=== PATIENT | male | born 1960 | race Caucasian/White ===

== ENCOUNTER 2018-03-14 07:40 | Outpatient (CLI) | payer BC ==
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
== END 2018-03-14 07:41 | disposition home or self-care (01) ==
LOC: WCC 07:40
PROVIDERS: ATTEND Family Medicine
DX: I83.228 Varicose veins of left lower extremity with both ulcer of other part of lower extremity and inflammation (principal); E11.622 Type 2 diabetes mellitus with other skin ulcer; I10 Essential (primary) hypertension; L97.929 Non-pressure chronic ulcer of unspecified part of left lower leg with unspecified severity; E11.51 Type 2 diabetes mellitus with diabetic peripheral angiopathy without gangrene; I25.10 Atherosclerotic heart disease of native coronary artery without angina pectoris; Z87.19 Personal history of other diseases of the digestive system
CPT/HCPCS: 36416

== ENCOUNTER 2018-03-28 09:50 | Outpatient (CLI) | payer BC ==
--- NOTE | 2018-03-28 08:53 | PRG ---
DATE OF SERVICE: 03/18/2018 HISTORY: Mr. Ismael Stafford is a very pleasant 57-year-old gentleman who presents to the [facility] for evaluation of ulceration over the left anterior lower leg. The patient previously stated at t he time of his initial presentation to the [facility] Center that the ulceration had been present for a li ttle over 3 months. He stated that he believed the wound began after he hit his left anterior lower leg against a concrete block at work. The patient stated that he had treated his wound by cleansing with soap and water. He stated that he had also treated the wound with hydrogen peroxide and Neospor in. He stated that he had treated his wounds with these agents twice a day. He stated that he kept the wound covered at work, but left the wound open to air while at home. The patient stated he was s een by Dr. Herring on 02/23/2018 and at this time referred to the [facility]ound Center for further evaluation and treatment. The patient also stated that he had been placed on Bactrim for [address] Michael felix. After being seen in the Wound Center, the patient was placed on dressing changes of Medihoney, ga uze and Coban. PHYSICAL EXAMINATION: VITAL SIGNS: Temperature 97.9, pulse 69, respirations 18, blood pressure 137/63, Accu-Chek 88. EXTREMITIES: An ulceration of the left anterior lower leg is present which measures approximately 0. 9 x 1.0 cm. No serous or purulent drainage is associated with the wound. No cellulitis of the left lower leg is appreciated. No maceration of the skin of the periwound is noted. A dorsalis pedis pul se and posterior tibial pulse is not palpable on the left. A dorsalis pedis pulse and posterior tibi al pulse on the left are both faintly audible by Doppler. No significant edema of the left lower leg is present on exam today. ASSESSMENT AND PLAN: 1. Varicose veins with ulcer and inflammation and varicosities are present over the left lower leg. The healing of the ulceration also appears to be complicated by arterial insufficiency. The patient previously stated that he may undergo percutaneous revascularization of the left lower extremity by Dr. Chino in the future. Dressing changes of Medihoney, gauze and Coban will be continued on a d aily basis after cleansing and irrigation. I will see Mr. Stafford again in two weeks. 2. Diabetes mellitus. The patient's Accu-Chek in clinic today is 88. The patient has been reminded that for optimal wound healing, his blood glucoses should remain below 150. 3. Hypertension. 4. Peripheral vascular disease. 5. Coronary artery disease. 6. History of hepatitis C.
== END 2018-03-28 09:51 | disposition home or self-care (01) ==
LOC: WCC 09:50
PROVIDERS: ATTEND Family Medicine
DX: I83.228 Varicose veins of left lower extremity with both ulcer of other part of lower extremity and inflammation (principal); E11.622 Type 2 diabetes mellitus with other skin ulcer; L97.929 Non-pressure chronic ulcer of unspecified part of left lower leg with unspecified severity; I73.9 Peripheral vascular disease, unspecified; I25.10 Atherosclerotic heart disease of native coronary artery without angina pectoris; I10 Essential (primary) hypertension; Z86.19 Personal history of other infectious and parasitic diseases
CPT/HCPCS: 36416; 97602

== ENCOUNTER 2018-04-11 07:50 | Outpatient (CLI) | payer BC ==
--- NOTE | 2018-04-11 08:48 | PRG ---
DATE OF SERVICE: 04/11/2018 HISTORY: Mr. Ismael Stafford is a very pleasant 57-year-old gentleman who presents to the [facility] for evaluation of an ulceration over the left anterior lower leg. The patient previously stated at the time of his initial presentation to the Wound Center that the ulceration had been present for a little over 3 months. He stated that he believed the wound began after he hit his left anterior lowe r leg against a concrete block at work. The patient stated that he had treated his wound by cleansin g with soap and water. He stated that he had also treated the wound with hydrogen peroxide and Neosp ayana. He stated that he had treated his wounds with these agents twice a day. He stated that he kep t the wound covered at work, but left the wound open to air while at home. Mr. Stafford stated he was s een by Dr. Herring on 02/23/2018 and at this time referred to the Wound Center for further evaluation and treatment. The patient also stated that he had been placed on Bactrim for [address] Michael felix. After being seen in the Wound Center, the patient was placed on dressing changes of juan Mendes and Coban. PHYSICAL EXAMINATION: VITAL SIGNS: Temperature 97.6, pulse 56, respirations 18, blood pressure 172/74. Accu-Chek 103. EXTREMITIES: An ulceration of the left anterior lower leg is present which measures approximately 1. 0 x 1.1 cm. The dimensions of the wound at the time of the patient's visit on 03/18/2018 were approx imately 0.9 x 1.0 cm. No serous or purulent drainage is associated with the wound. Eschar covers al most the entire wound bed. No cellulitis of the left lower leg is appreciated. No maceration of the skin of the periwound is noted. A dorsalis pedis pulse or posterior tibial pulse is not palpable on the left. Both pulses are only faintly audible by Doppler. No significant edema of the left foot o r lower leg is present on exam today. ASSESSMENT AND PLAN: 1. Varicose veins with ulcer and inflammation. Varicosities are present over the left lower leg. T he healing of the ulceration also appears to be complicated by arterial insufficiency. The patient p reviously stated that he may undergo percutaneous revascularization of the left lower extremity by Dr Rachna Chino in the future. Dressing changes of Medihoney, gauze and Coban will be continued on a noe ly basis after cleansing and irrigation. Arrangements will be made for Mr. Stafford to be seen by Dr. David winter for evaluation for percutaneous revascularization of the left lower extremity sooner than hi s scheduled appointment in May. Mr. Stafford is to return to the Wound Center after evaluation and any necessary treatment by Dr. Chino is complete. 2. Diabetes mellitus. The patient's Accu-Chek in clinic today is 103. The patient has been reminde d that for optimal wound healing, his blood glucoses should remain below 150. 3. Hypertension. 4. Peripheral vascular disease. 5. Coronary artery disease. 6. History of hepatitis C.
== END 2018-04-11 07:51 | disposition home or self-care (01) ==
LOC: WCC 07:50
PROVIDERS: ATTEND Family Medicine
DX: E11.622 Type 2 diabetes mellitus with other skin ulcer (principal); I83.228 Varicose veins of left lower extremity with both ulcer of other part of lower extremity and inflammation; I10 Essential (primary) hypertension; I73.9 Peripheral vascular disease, unspecified; I25.10 Atherosclerotic heart disease of native coronary artery without angina pectoris; Z86.19 Personal history of other infectious and parasitic diseases
CPT/HCPCS: 36416